=== PATIENT | male | born 2000 | race Caucasian/White ===

== ENCOUNTER 2020-12-22 21:50 | Emergency (ER) | payer OTHER ==
[~2020-12-22 21:50] MED LIST: IBUPROFEN600 MG PO
== END 2020-12-23 00:20 | disposition home or self-care (01) ==
LOC: ER1 21:50
DX: S06.9X9A Unspecified intracranial injury with loss of consciousness of unspecified duration, initial encounter (principal); F17.290 Nicotine dependence, other tobacco product, uncomplicated; W22.8XXA Striking against or struck by other objects, initial encounter
CPT/HCPCS: 70450; 99283

== ENCOUNTER 2021-04-14 10:13 | Emergency (ER) | payer OTHER ==
[2021-04-14 12:03] LABS: HEMOGLOBIN 16.2 gm/dl (14.0-17.5); RED BLOOD COUNT 5.52 M/UL (4.20-5.50); WHITE BLOOD COUNT 6.8 K/UL (4.5-11.0)
[2021-04-14 13:36] LABS: BUN/CREATININE RATIO 19 (0-10)
[2021-04-14] MEDS ORDERED: ZOFRAN ODT 4 MG4 MG GT (14:17)
[2021-04-14 16:08] LABS: ADENOVIRUS F 40/41 Not Detected (Negative); CAMPYLOBACTER Not Detected (Negative); CRYPTOSPORIDIUM Not Detected (Negative); E.COLI 0157 Not Detected (Negative); ENTAMOEBA HISTOLYTICA Not Detected (Negative); ENTEROAGGREGATIVE E.COLI (EAEC Not Detected (Negative); ENTEROPATHOGENIC E.COLI (EPEC) Not Detected (Negative); ENTEROTOXIGENIC E.COLI (ETEC) Not Detected (Negative); GIARDIA LAMBLIA Not Detected (Negative); NOROVIRUS GI/GII Not Detected (Negative); PLESIOMONAS SHIGELLOIDES Not Detected (Negative); ROTOVIRUS A Not Detected (Negative); SALMONELLA Not Detected (Negative); SAPOVIRUS Not Detected (Negative); SHIG/ENTEROINVAS.ECOLI (EIEC) Not Detected (Negative); SHIGA-LIK TOX.PRO.E.COLI (STEC Not Detected (Negative); VIBRIO Not Detected (Negative); VIBRIO CHOLERAE Not Detected (Negative); YERSINIA ENTEROCOLITICA Not Detected (Negative)
[2021-04-14 17:43] LABS: CLOSTRIDIUM DIFFICILE TOX A/B DETECTED (Negative)
[2021-04-14 17:44] LABS: ASTROVIRUS DETECTED (Negative)
[2021-04-14] MEDS ORDERED: PROBIOTIC & AC1 EACH PO (19:36)
[2021-04-14] MEDS ORDERED: VANCOCIN 125 M125 MG PO (19:36)
[2021-04-14] MEDS ORDERED: ZOFRAN4 MG PO (19:36)
== END 2021-04-14 16:47 | disposition home or self-care (01) ==
LOC: ER1 10:13
PROVIDERS: Nurse Practitioner
DX: R10.84 Generalized abdominal pain (principal); R10.13 Epigastric pain; R10.813 Right lower quadrant abdominal tenderness; R10.814 Left lower quadrant abdominal tenderness; R10.30 Lower abdominal pain, unspecified; F17.290 Nicotine dependence, other tobacco product, uncomplicated; N30.90 Cystitis, unspecified without hematuria; Z20.822 Contact with and (suspected) exposure to COVID-19; K38.0 Hyperplasia of appendix; Z90.89 Acquired absence of other organs
CPT/HCPCS: 80053; 81001; 83690; 85025; 87507; 99284; Q9967; U0002

== ENCOUNTER 2022-01-01 11:49 | Emergency (ER) | payer OTHER ==
[~2022-01-01 11:49] MED LIST changes: +PROBIOTIC & AC1 EACH PO; +VANCOCIN 125 M125 MG PO; +ZOFRAN ODT 4 MG4 MG GT; +ZOFRAN4 MG PO
== END 2022-01-01 13:40 | disposition home or self-care (01) ==
LOC: ER1 11:49
DX: U07.1 COVID-19 (principal); M54.2 Cervicalgia; F17.290 Nicotine dependence, other tobacco product, uncomplicated
CPT/HCPCS: 0240U; 96374; 96375; 99284; J0780; J1200; J1885